=== PATIENT | female | born 1980 | race Caucasian/White ===

== ENCOUNTER 2016-07-15 05:29 | Day surgery (SDC) | payer BC ==
[2016-07-15] VITALS (8 sets, daily range): BP systolic 98–126; BP diastolic 58–75
[~2016-07-15] VITALS: Ht 180.3 cm; Wt 68.1 kg
[2016-07-16 04:16] VITALS: BP 103/56
[2016-07-16 06:47] LABS: HEMATOCRIT 33.5 % (36.0-46.0); MCHC 34.3 G/DL (30.0-36.0); MCV 87.5 FL (83-99); MEAN PLAT.VOLUME 10.5 uM^3 (9.5-12.4); PLATELET COUNT 204 K/uL (156-360); RBC DIS.WIDTH-CV 12.7 % (11.8-14.6); RBC DIS.WIDTH-SD 40.5 % (39-53); RED BLOOD COUNT 3.83 M/uL (3.80-5.20); WHITE BLOOD COUNT 9.4 K/uL (4.1-10.2)
[2016-07-16 07:16] LABS: ANION GAP 7 MEQ/L (2-14); CHLORIDE 109 MEQ/L (99-109); GFR ESTIMATE (CALCULATED) > 59 mL/min/; GLUCOSE 97 mg/dL (70-99); POTASSIUM 3.9 MEQ/L (3.7-5.4); SAMPLE HEMOLYSIS CHECK 0; SAMPLE ICTERIC CHECK 0; SAMPLE LIPEMIA CHECK 0; SODIUM 141 MEQ/L (136-147); UREA NITROGEN (BUN) 7 mg/dL (9-23)
[2016-07-16 07:50] VITALS: BP 114/65
[2016-07-16] MEDS ORDERED: IBUPROFEN800 MG PO (08:36)
[2016-07-16] MEDS ORDERED: ENDOCET 5-3251 EACH PO (08:36)
== END 2016-07-16 11:19 | disposition home or self-care (01) ==
LOC: SDC 05:29 → 2SOUTH 09:40 → SDC 13:18 → 2EAST 17:44
PROVIDERS: Obstetrics & Gynecology
DX: R10.2 Pelvic and perineal pain (principal); N80.0 Endometriosis of uterus; I34.1 Nonrheumatic mitral (valve) prolapse
CPT/HCPCS: 80048; 85027; 88302; 88307; G0378; J0131; J0690; J1100; J1170; J1885; J2250; J2405; J2710; J3010